=== PATIENT | male | born 1980 | race Caucasian/White ===

== ENCOUNTER → 2021-07-09 12:53 | Outpatient (BNVA) | payer OTHER, SELFPAY | PROVIDERS: PCP Internal Medicine; Visit Provider Nurse Practitioner Family ==

== ENCOUNTER 2021-09-15 05:53 | Outpatient (REF) | payer OTHER, SELFPAY ==
--- NOTE | ~2021-09-15 | FL_ITS ---
EXAMINATION: XR FLUOROSCOPY WITH IMAGES CLINICAL INFORMATION: M54.16 - Radiculopathy, lumbar region COMPARISON: None. TECHNIQUE: Fluoroscopy performed by Dr. Brain Anton. Fluoroscopy time: 0.5 minutes DAP: 1.94 Gycm2 Images: 2 FINDINGS: There there is a spinal needle overlying the outer left L4 neural foramen. Contrast is seen in the respective nerve sheaths along with transforaminal epidural extension. No visible vascular communication. The AP view also shows a needle overlying the right paraspinal region at L3 and extending beyond field of view, possibly not part of the procedure. The lateral view also suggests a spinal needle pointed towards the lumbosacral junction not seen on AP view. FL/FL guidance in treatment room IMPRESSION: Fluoroscopy for pain management procedures.
== END 2021-09-15 05:54 | disposition home or self-care (01) ==
LOC: HO.RADIR 05:53
PROVIDERS: Visit Provider Internal Medicine
DX: M54.16 Radiculopathy, lumbar region (principal); M53.9 Dorsopathy, unspecified; Z91.018 Allergy to other foods
CPT/HCPCS: 64483; 64484; J1020; J1040; Q9967

== ENCOUNTER → 2021-10-08 11:54 | Outpatient (BNVA) | payer OTHER, SELFPAY | PROVIDERS: PCP Internal Medicine; Visit Provider Internal Medicine | DX: Z13.89 Encounter for screening for other disorder (principal) ==